=== PATIENT | female | born 1970 | race Caucasian/White ===

== ENCOUNTER 2016-07-14 08:59 | Emergency (ER) | payer OTHER ==
[~2016-07-14] VITALS: Ht 165.1 cm; Wt 88.1 kg
[2016-07-14] MEDS ORDERED: JUNEL FE 1 MG-1 EACH PO (09:38)
--- NOTE | 2016-07-14 10:02 | ED GENERAL ADULT ---
History of Present Illness General Chief Complaint: General Adult Stated Complaint: "TINGLING ON WHOLE RT SIDE OF BODY" PER PT Source: patient Exam Limitations: no limitations Vital Signs & Intake/Output Vital Signs & Intake/Output Vital Signs Date Time Temp Pulse Resp B/P Pulse O2 O2 Flow FiO2 Ox Delivery Rate 07/14 1516 98.7 90 20 150/80 98 Room Air 07/14 1200 98.9 94 18 161/86 97 Room Air 07/14 0908 97.9 98 20 137/81 100 Room Air Room Air Allergies Coded Allergies: No Known Allergies (07/14/16) Reconcile Medications Dexamethasone 4 MG TABLET 4 TAB PO DAILY TRANSERVE MYELITIS TAKE ONE TABLET BY MOUTH THREE TIMES A DAY FOR THREE DAYS (07/14/16-07/16/16) TAKE ONE TABLET BY MOUTH TWO TIMES A DAY FOR THREE DAYS (07/17/16-07/19/16) TAKE ONE TABLET BY MOUTH ONCE A DAY FOR THREE DAYS (07/20/16-07/23/16) Norethindrone-E.estradiol-Iron (Junel Fe 1 MG-20 Mcg Tablet) 1 MG-20 MCG (21)/75 MG (7) TABLET 1 TAB PO DAILY BC (Reported) Triage Note: PT TO ED WITH HISTORY OF SNOW SHOVELING AND THEN KICK BOXING CLASS, HAD RIGHT SHOULDER PAIN. WENT TO [facility] LAST NIGHT, HAD PHYSICAL AND WAS NEGATIVE. Triage Nurses Notes Reviewed? yes : No Patient currently breastfeeds: No HPI: 45-year-old woman with no past medical history seen for evaluation of right- sided numbness. She reports shoveling snow approximately 2 weeks ago on a and noticing some numbness in her right shoulder in the shower the next morning. She has an active lifestyle and participates in kickboxing classes quite frequently. She went to [facility] [employer] that same day and the next where she noticed progression of her numbness from her right shoulder down her right arm. Over the next 2 weeks she reports progression of her symptoms to include her right chest wall/right flank and lateral aspect of her right lower extremity. She reports associated "heaviness" to these extremities but denies any obvious weakness as she is able to complete all activities of daily living. He does admit to right neck/shoulder pain that she attributes to the kickboxing and shoveling. She reports eating and drinking adequately with normal bathroom habits. She reports that she takes oral contraceptives and has been on them for years and denies any smoking history. She denies any other trauma other than stated. She admits to a family history of lupus in her mother but denies any history of multiple sclerosis. Otherwise she denies any blurred/double vision, lightheadedness/dizziness, headache, fever, chills, chest pain, palpitations, shortness of breath, cough, nausea, vomiting, diarrhea. (TONY BHAGAT MD) Past History Travel History Traveled to [place] past 21 day No Medical History Any Pertinent Medical History? see below for history Neurological: NONE EENT: allergies Cardiovascular: NONE Respiratory: NONE Gastrointestinal: NONE Hepatic: NONE Renal: NONE Musculoskeletal: NONE Psychiatric: NONE Endocrine: NONE Blood Disorders: NONE Cancer(s): NONE REPORTING SPECIALIST/Reproductive: NONE Surgical History Surgical History: non-contributory Psychosocial History What is your primary language Romanian Tobacco Use: Never used ETOH Use: occasional use Illicit Drug Use: denies illicit drug use Family History Hx Contributory? No (TONY BHAGAT MD) Review of Systems Review of Systems Constitutional: Reports: see HPI. (TONY BHAGAT MD) Physical Exam Physical Exam General Appearance: well developed/nourished, no apparent distress, alert, awake Comments: Faklosi-vhij-fglumvwyu, well-nourished middle-aged woman in no acute distress HEENT-NCAT, PERRLA, EOMI, anicteric sclera, moist mucous membranes, range of motion Neck-supple, right-sided tenderness Back-mild right scapular tenderness without deformity CVS-S1, S2 without murmurs gallops or rubs Respiratory-clear to auscultation bilaterally without wheezing, rhonchi, crackles Gastrointestinal-soft, nontender, nondistended, bowel sounds intact Neuro-awake and alert, oriented to person/place/time, cranial nerves II through XII intact, absence of sensation to right deltoid but otherwise intact, strength 4/5 in in right upper extremity but otherwise 5/5 in all others, gait normal, Romberg negative, coordination intact Extremities-normal pulses, no cyanosis/clubbing/edema Core Measures ACS in differential dx? No CVA/TIA Diagnosis: No Severe Sepsis Present: No Septic Shock Present: No (TONY BHAGAT MD) Progress Differential Diagnoses I considered the following diagnoses in my evaluation of the patient: Cervical radiculopathy, musculoskeletal strain, lacunar infarct, multiple sclerosis Plan of Care: Orders Procedure Date/time Status Regular Diet 07/14 D Active SERUM PROTEIN ELECTR. Ref$ 07/14 1451 Active RHEUMATOID FACTOR 07/14 1451 Complete LYME TITRE 07/14 1451 Active WESTERGREN SED RATE 07/14 1451 Active NEUTRO CYTO ANTIBODY Ref$ 07/14 1451 Active ANTINUCLEAR ANTIBODY 07/14 1451 Active Laboratory Tests 07/14/16 1503: Rheum Factor Semi-Quant < 8.6 07/14/16 1503: KONRAD Titer Pending, Anti-Nuclear Antibody Pending 07/14/16 1503: Prot Electrophoresis Pending, Total Protein (PEP) Pending, Albumin % (PEP) Pending, Wmarz-6-Dhxguitlh Pending, Mbqux-6-Owmgdacdw Pending, Fzqf-2-Qyqlpclf Pending, Owvi-0-Flyutqvo Pending, Gamma Globulins Pending, Abnorm Protein Band 1 Pending, Abnorm Protein Band 2 Pending, Abnorm Protein Band 3 Pending, ESR Westergren Pending, ANCA Pending, Lyme Disease Antibody Pending Initial ED EKG: none Comments: Given patients symptoms that are of sensory nature only it is reasonable to exlude more nefarious disease processes such as multiple sclerosis, or a lacunar infarct with MRI imaging. MRI of the Head and C-Spine demonstrated multiple nonspecific findings for which neurology was consult. Case was discussed with Dr. Witt and it was felt due to the presence of the cervical cord lesion this disease process most likely prepresents that of transverse myelitis with diagnoses such as multiple sclerosis or an infarct being less likely. Studies incluing KONRAD, ESR, ANCA, RF, Lyme, and SPEP are to be sent with patient being discharged on a dexamethasone taper. She is to follow up with Dr. Palmer group as an outpatient for further evaluation. (LEOLA VERNON,TONY) Departure Departure Disposition: HOME OR SELF CARE Condition: Stable Clinical Impression Primary Impression: Transverse myelitis Referrals: SUSANNE VERNON,SANTO Ramey (PCP/Family) Additional Instructions: Follow-up with Dr. Witt as an outpatient to review the lab studies sent in the [facility] ED. Take dexamethasone as directed. Call 911 or or return to the ED should your symptoms worsen or if you develop new neurologic symptoms. Departure Forms: Customer Survey General Discharge Information Prescriptions: Current Visit Scripts Dexamethasone 4 TAB PO DAILY #18 TAB TAKE ONE TABLET BY MOUTH THREE TIMES A DAY FOR THREE DAYS (07/14/16-07/16/16) TAKE ONE TABLET BY MOUTH TWO TIMES A DAY FOR THREE DAYS (07/17/16-07/19/16) TAKE ONE TABLET BY MOUTH ONCE A DAY FOR THREE DAYS (07/20/16-07/23/16) (TONY BHAGAT MD) PA/PRECISION MECHANICAL INSTRUMENT MAKER Co-Sign Statement Statement: ED Attending supervision documentation- [] I saw and evaluated the patient. I have also reviewed all the pertinent lab results and diagnostic results. I agree with the findings and the plan of care as documented in the PA's/PRECISION MECHANICAL INSTRUMENT MAKER's documentation. [] I have reviewed the ED Record and agree with the PA's/PRECISION MECHANICAL INSTRUMENT MAKER's documentation. [] Additions or exceptions (if any) to the PAs/PRECISION MECHANICAL INSTRUMENT MAKER's note and plan are summarized below: [] Resident Co-Sign Statement Statement: ED Attending supervision documentation- [X] I saw and evaluated the patient. I have also reviewed all the pertinent lab results and diagnostic results. I agree with the findings and the plan of care as documented in the Resident's documentation. [X] I have reviewed the ED Record and agree with the Resident's documentation. [] Additions or exceptions (if any) to the Resident's note and plan are summarized below: [Patient sent in by her orthopedist for evaluation of numbness to the right side of her body. The symptoms started 4 days ago. Patient denies any weakness. The numbness started in the right arm but has subsequently spread to the right side of her body. Patient denies any pain. There is no headache. On exam she does have sensory deficits on the right side of her body. Patient have an MRI. MRI RESULTS DISCUSSED WITH DR. WITT AND PLAN OF CARE DISCUSSED WITH THE PATIENT.] (CHACORTA VERNON,MOUSTAPHA Ramey) Critical Care Note Critical Care Note Critical Care Time: non-applicable (TONY BHAGAT MD)
--- NOTE | 2016-07-14 14:19 | MRI REPORT ---
MRI OF THE BRAIN WITH AND WITHOUT IV CONTRAST MRI CERVICAL SPINE WITH AND WITHOUT IV CONTRAST INDICATION: Right-sided numbness for 2 weeks. COMPARISON: None available. TECHNIQUE: Multiplanar multisequence MR imaging of the brain and cervical spine are obtained without and following the administration of 18 cc of Magnevist without complication. FINDINGS: BRAIN MRI: There is no pathologic intracranial enhancement. There is no hydrocephalus, extra-axial surface collection, or herniation. There is a small focus of increased signal on T2-weighted imaging adjacent to the frontal horn of the left lateral ventricle. There is no additional parenchymal signal abnormality. The major flow voids at the skull base are preserved. There is no acute infarct on diffusion-weighted imaging. There is no intracranial hemorrhage on the gradient recalled echo acquisition. 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 The cerebellar tonsils are normally positioned. The cerebellum and brainstem are normal. The craniocervical junction is normal. There is low nonspecific marrow signal throughout the bony calvarium. The visualized soft tissues are unremarkable. Small retention cyst within the right sphenoid sinus. The remaining paranasal sinuses are clear. Mastoid air cells are clear. CERVICAL SPINE MRI: There is a peripherally based partially enhancing intramedullary lesion within the right posterolateral cervical spinal cord centered at the C3 level with T2 prolongation beyond the margins of the enhancing component of the lesion extending to the inferior T2 level and to the C3-C4 disc level. The enhancing component of the lesion measures up to 1.4 cm CC by 0.5 cm AP by 0.6 cm TV. There is slight cord expansion at the level of involvement. No additional cord signal abnormality is appreciated. Straightening the cervical lordosis. Vertebral body heights are maintained. There is mild disc volume loss at C5-C6 and C6-C7. There is no bone marrow edema. There are no acute fractures. Craniocervical junction is normal. At C3-C4 there is left-sided uncovertebral joint spurring that along with hypertrophic facet arthropathy results in mild to moderate left foraminal stenosis. At C5-C6 there is a central right base disc protrusion that indents the ventral thecal sac resulting in mild to moderate central canal stenosis and slight flattening of the ventral cord. There is uncovertebral joint spurring bilaterally with mild bilateral foraminal narrowing. At C6-C7 there is a broad-based disc protrusion that is eccentric to the left side which slightly flattens the ventral cord resulting in mild to moderate central canal stenosis. Bilateral uncovertebral joint spurring, greater on the left side with mild left foraminal narrowing. The remaining cervical disc contours are normal. IMPRESSION: - Partially enhancing and slightly expansile intramedullary lesion involving the right posterolateral cervical spinal cord centered at the C3 level with differential considerations including transverse myelitis or the sequela of underlying demyelinating disease. A short-term follow-up MRI following conservative treatment is recommended to exclude the possibility of an enhancing neoplasm with adjacent cord edema. - There is a single small focus of T2 prolongation within the left frontal white matter adjacent to the left frontal horn which can be seen as an anatomic variant or that could reflect a true focus of parenchymal signal abnormality. In light of the cervical cord findings, follow-up is recommended. - Multilevel cervical spondylosis that is greatest at C5-C6 and C6-C7 with disc protrusions at both of these levels resulting in mild to moderate central canal stenosis and slight flattening of the ventral cord. - Low marrow signal throughout the bony calvarium which can be seen in the setting of anemia or variety of marrow replacement processes. CBC correlation recommended. 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 Findings discussed with Dr. Alba at 2:13 PM on 03/13/2017.
[2016-07-14] MEDS ORDERED: DEXAMETHASONE4 M1 PO (14:59)
[2016-07-14 15:16] VITALS: BP 150/80
== END 2016-07-14 15:19 ==
LOC: ERH 08:59
DX: G37.3 Acute transverse myelitis in demyelinating disease of central nervous system (principal); M54.2 Cervicalgia; M25.511 Pain in right shoulder; Z79.3 Long term (current) use of hormonal contraceptives
CPT/HCPCS: 70552; 72142; 86021; 86618; 70553; 72156; 84165; 86431; A9579